=== PATIENT | female | born 1985 | race Caucasian/White ===

== ENCOUNTER 2017-05-17 07:46 | Emergency (ER) | payer OTHER ==
[~2017-05-17] VITALS: Ht 175.3 cm; Wt 95.3 kg
[2017-05-17 07:50] VITALS: BP 139/84
--- NOTE | 2017-05-17 07:50 | NUR ---
PATIENT PRESENTS TO ED WITH C/O COLD S/SX . PT STATES SHE BEGAN COUGHING 4 DAYS AGO AND NOW HAS SORE THROAT . DENIES N/V/D; SKIN IS PINK/WARM/DRY; AAOX4 WITH EVEN AND STEADY GAIT; LUNGS CLEAR BL; HR EVEN AND REGULAR; PT DENIES ANY FEVER, OR CP AT THIS TIME; PATIENT STATES PAIN OF 0/10 AT THIS TIME; VSS. ER MD MADE AWARE OF PT STATUS.
--- NOTE | 2017-05-17 07:52 | NUR ---
Don EVALUATING PT IN TRIAGE.
[2017-05-17 08:19] VITALS: BP 139/84
--- NOTE | 2017-05-17 08:20 | NUR ---
Patient discharged with v/s stable. Written and verbal after care instructions given and explained. Patient alert, oriented and verbalized understanding of instructions. Ambulatory with steady gait. All questions addressed prior to discharge. ID band removed. Patient advised to follow up with PMD. Rx of Z PACK, TYLENOL ELIXER WITH CODEINE given. Patient educated on indication of medication including possible reaction and side effects. Opportunity to ask questions provided and answered.
== END 2017-05-17 08:15 | disposition home or self-care (01) ==
LOC: MED 07:46
DX: J20.9 Acute bronchitis, unspecified (principal); F17.200 Nicotine dependence, unspecified, uncomplicated
CPT/HCPCS: 99283